=== PATIENT | male | born 1955 | race Caucasian/White ===

== ENCOUNTER 2024-12-28 06:53 | Day surgery (SDC) | payer OTHER, MEDICARE ==
[2024-12-24 10:18] LABS: MEAN PLATELET VOLUME 8.0 FL (7.4-10.4); PRE OP HEMATOCRIT 39.9 % (42.0-52.0); PRE OP HEMOGLOBIN 13.4 g/dL (14.0-17.9); PRE OP PLATELET COUNT 272 X10'3 (140-440); PRE OP WHITE BLOOD COUNT 7.8 10'3 (4.8-10.8); RED CELL DISTRIBUTION WIDTH 14.2 % (11.5-14.5)
--- NOTE | 2024-12-24 10:21 | ELECTROCARDIOGRAPH REPORT ---
[facility] Test Date: 2024-12-24 Test Time: 10:19:25 Pat Name: ZARI KELLY Department: [facility]-PRE-OP Patient ID: [facility]-[id number] Room: Gender: M Plant Reliability Engineer: amy : 1955 Requested By: JENNIFER FELIX Order Number: [id number] Reading MD: Dr. ELIZABETH Torres Measurements Intervals [place] Rate: 69 P: 55 AL: 167 QRS: 51 QRSD: 98 T: 60 QT: 377 QTc: 404 Interpretive Statements Sinus rhythm Electronically Signed On 12-25-2024 16:48:[address] ELIZABETH Torres Please click the below link to view image of tracing.
[2024-12-24 10:31] LABS: CREATININE 0.54 MG/DL (0.60-1.10); PRE OP ALT 33 U/L (30-65); PRE OP ANION GAP 11 (8-16); PRE OP AST 22 U/L (10-37); PRE OP BILIRUB, TOTAL 0.5 MG/DL (0.0-1.0); PRE OP GLUCOSE 89 MG/DL (70-104); PRE OP POTASSIUM 4.6 MMOL/L (3.4-5.1); PRE OP SODIUM 133 MMOL/L (135-145); TOTAL CARBON DIOXIDE 27.3 MMOL/L (24-32); eGFR > 90 ML/MIN
[2024-12-28] VITALS (7 sets, daily range): BP systolic 122–164; BP diastolic 72–95; PULSE 62–77; RESP 9–16; TEMP 98.2; O2SAT 94–98
[~2024-12-28] VITALS: Ht 190.5 cm; Wt 90.7 kg
[~2024-12-28 06:53] MED LIST: CELE-127 PO
[2024-12-28] MEDS ORDERED: BUPIVAcaine/PF 2.5mg/ml (0.25%) 10ml vial ONE (06:54)
[2024-12-28] MEDS ORDERED: LIDOcaine 2% (20mg/ml) 5ml vial ONE ×2 (06:54→08:35)
[2024-12-28] MEDS: ringers solution, lacted 1,000 ML IV SCH (07:01)
[2024-12-28] MEDS: ceFAZolin 2gm/dext,iso 50mL 50 ML IV ONE (07:01)
[2024-12-28] MEDS ORDERED: fentaNYL/PF 50MCG/1 ML 2ML syringe ONE (08:56)
[2024-12-28] MEDS ORDERED: midazolam 1 mg/ML 2ml injection ONE (08:57)
[2024-12-28] MEDS ORDERED: propofol 10mg/ml 20ml vial IV ONE (09:06)
[2024-12-28] MEDS: LIDOcaine 1%/PF 5ML 10 MG/ML VIAL IJ ONE (09:12)
[2024-12-28] MEDS: BUPIVAcaine/PF 2.5mg/ml (0.25%) 10ml vial IJ ONE (09:12)
--- NOTE | 2024-12-28 09:30 | OPERATIVE REPORT ---
Operative Report Providers to ~ Date of Procedure: Dec 28, 2024 Pre-Operative Diagnosis: Left wrist carpal tunnel syndrome Post-Operative Diagnosis SAME as PRE-Op Procedure Performed Left wrist open carpal tunnel release Surgeon: Scooby Styles MD Compo Caster None Anesthesiologist: Daniel Lau Type of Anesthesia: Other Findings: Local anesthetic and sedation was given for anesthesia Estimated Blood Loss: None Specimen Removed: None Description of Procedure: The patient is a 69-year-old man with left carpal tunnel syndrome refractory to nonsurgical treatment. Surgery is indicated to relieve symptoms. Local anesthetic was infiltrated proximal to the wrist crease after prep and drape of the arm. Time-out procedure was identified. The carpal tunnel was addressed with a 3 cm incision in the palm ulnar to the thenar crease in line with the radial side of the ring finger through skin and palmar fascia. Dissection to the deeper tissues identified the transverse carpal ligament which was then incised in line with the skin incision. The median nerve was identified and protected while the ligament was divided distally to the transverse arch and then proximally to the wrist crease followed by division of the forearm fascia. The nerve was decompressed at this point no lesions were noted in the carpal canal so the incision was irrigated and closed with nylon suture. Sterile dressing was applied and the tourniquet was released. The hand perfused well and the patient was taken to the recovery room in stable condition SCOOBY STYLES Jr., MD Dec 28, 2024 09:30
== END 2024-12-28 10:03 | disposition home or self-care (01) ==
LOC: PAS 06:53
PROVIDERS: ATTEND Orthopaedic Surgery Hand Surgery
DX: G56.02 Carpal tunnel syndrome, left upper limb (principal); M19.90 Unspecified osteoarthritis, unspecified site; Z87.891 Personal history of nicotine dependence; Z79.891 Long term (current) use of opiate analgesic; Z79.899 Other long term (current) drug therapy; Z98.890 Other specified postprocedural states
CPT/HCPCS: 36415; 64721; 80053; 82948; 85025; 93005; J2003; J2250; J2704; J3010; J3490; J7030; J7120; Z7506; Z7512; A4215; A6449